=== PATIENT | female | born 1990 | race Caucasian/White ===

== ENCOUNTER 2016-10-17 19:19 | Emergency (ER) | payer MEDICAID ==
[~2016-10-17] VITALS: Ht 165.1 cm; Wt 93.9 kg
[2016-10-17 19:23] VITALS: BP 148/92
== END 2016-10-17 21:30 | disposition home or self-care (01) ==
LOC: ED 19:19
DX: M54.2 Cervicalgia (principal); R03.0 Elevated blood-pressure reading, without diagnosis of hypertension